=== PATIENT | male | born 1960 | race Caucasian/White ===

== ENCOUNTER → 2024-11-17 | Outpatient (CLI) | payer OTHER ==
[2024-11-17 14:09] LABS: Partial Thromboplastin Time 27.2 sec (22.0-30.0); Prothrombin Time 11.3 sec (10.0-12.5)
[2024-11-17 16:51] LABS: HCT 43.1 % (39.6-50.0); HGB 15.9 g/dL (13.0-17.0); MCH 33.8 pg (27.0-32.0); MCHC 36.9 g/dL (32.0-37.0); MCV 91.7 FL (80.0-97.0); Mean Platelet Volume 11.5 FL (9.5-12.2); NRBC Per 100 WBC 0 X 10*3/uL (0.00-0.01); Platelet Count 267 X 10*3/uL (140-440); RDW 15.5 % (11.5-14.5); WBC 7.01 X 10*3/uL (4.50-10.00)
[2024-11-17 18:12] LABS: ALT 20 U/L (10-49); AST 27 U/L (14-35); Albumin 4.4 g/dL (3.8-4.9); Albumin/Globulin Ratio 1.47 Ratio (1.60-3.17); Alkaline Phosphatase 65 U/L (41-126); Blood Urea Nitrogen 14.1 mg/dL (9.0-27.0); Calcium 10.1 mg/dL (8.7-10.3); Chloride 101 mmol/L (96-109); Glucose 93 mg/dL (70-110); Potassium 4.7 mmol/L (3.5-5.5); Sodium 139 mmol/L (135-145); Total Bilirubin 0.4 mg/dL (0.3-1.2); Total Protein 7.4 g/dL (6.2-8.2)
== END | disposition home or self-care (01) ==
LOC: LABPAT 12:18
PROVIDERS: ATTEND Orthopaedic Surgery
DX: Z01.818 Encounter for other preprocedural examination (principal)
CPT/HCPCS: 36415; 80053; 83036; 85027; 85610; 85730; 86850; 86900; 86901; 87070; 93005

== ENCOUNTER 2024-11-26 10:05 | Day surgery (SDC) | payer OTHER ==
[~2024-11-26 10:05] MED LIST: HYDROmorphone 0.5 MG/0.5 ML SYRINGE IVP PRN; LIDOCAINE 1% (10MG/ML) FOR IV START INTRADERMA PRN; TRANEXAMIC 1,000 MG/100ML-NACL 1,000 MG in SALINE 1 100ML.BAG IV PRN; TRANEXAMIC 1,000 MG/100ML-NACL 1,000 MG in SALINE 1 100ML.BAG IVPB PRN
[2024-11-26] MEDS: IV FLUID CONTINUATION 1,000 ML IV ONE ×3 (11:04→14:26)
[2024-11-26] MEDS: DOCUSATE 100 MG CAP PO PRN (11:14)
[2024-11-26] MEDS: oxyCODONE ER 10 MG TAB.ER.12H PO PRN (11:14)
[2024-11-26] MEDS: ACETAMINOPHEN TAB 500 MG TAB PO PRN (11:14)
[2024-11-26] MEDS: KETOROLAC 15 MG/ML 1 ML VIAL IVP PRN (11:16)
[2024-11-26] MEDS: LACTATED RINGERS 1,000 ML IV SCH (11:16)
[2024-11-26] MEDS: DEXAMETHASONE SOD PHOSPHATE 10 MG/ML 1 ML VIAL IV PRN (11:17)
[2024-11-26] MEDS: FAMOTIDINE 20 MG/2 ML VIAL IVP PRN (11:17)
[2024-11-26] MEDS: ONDANSETRON 4 MG/2 ML VIAL IVP PRN (11:17)
[2024-11-26] MEDS: fentaNYL (PF) 50 MCG/ML 2 ML AMP IVP ONE (11:45)
[2024-11-26] MEDS: MIDAZOLAM 2 MG/2 ML VIAL IV ONE (11:45)
[2024-11-26] MEDS ORDERED: PROPOFOL 10 MG/ML 20 ML VIAL IV ONE (12:29)
[2024-11-26] MEDS ORDERED: ROCURONIUM 10 MG/ML (5 ML VIAL) IV ONE (12:29)
[2024-11-26] MEDS ORDERED: MIDAZOLAM 2 MG/2 ML VIAL ONE (12:29)
[2024-11-26] MEDS ORDERED: TRANEXAMIC 1,000 MG/100ML-NACL PREMIX BAG ONE (12:29)
[2024-11-26] MEDS ORDERED: SUCCINYLCHOLINE CHLORIDE 200 MG/10 ML VIAL IV ONE (12:29)
[2024-11-26] MEDS ORDERED: LIDOCAINE 1% INJ 10MG/ML (20 ML MDV) ONE (12:29)
[2024-11-26] MEDS ORDERED: fentaNYL (PF) 50 MCG/ML 2 ML AMP ONE (12:29)
[2024-11-26] MEDS ORDERED: GLYCOPYRROLATE 0.2 MG/ML 2 ML VIAL ONE (12:29)
[2024-11-26] MEDS ORDERED: HYDROmorphone (PF) 1 MG/ML ONE (12:29)
[2024-11-26] MEDS ORDERED: ROPIVACAINE 5 MG/ML 30 ML VIAL ONE (12:29)
[2024-11-26] MEDS ORDERED: ePHEDrine 50 MG/ML 1 ML VIAL ONE (12:29)
[2024-11-26] MEDS ORDERED: NEOSTIGMINE 1 MG/ML 10 ML VIAL ONE (12:29)
[2024-11-26] MEDS: ceFAZolin 3 GM in SODIUM CHLORIDE 0.9% 100 ML IVPB PRN (12:34)
[2024-11-26] MEDS: ROPIVACAINE/EPI/CLONIDINE/KET 50 ML SYRINGE MISCELLANE PRN (13:12)
--- NOTE | 2024-11-26 13:53 | P.ANPRN ---
Procedure Note - Anesthesia - Nerve Block Performed Right Garcia Single Time Out Performed: Yes (1143) Date of Procedure: 11/26/24 Procedure Start Time: 11:44 Procedure Stop Time: 11:48 Location of Patient: PreOp Indication: Acute Post-Operative Pain, Requested by Surgeon Specifically requested for management of pain by DrPeg: Romero Puckett Sedation Type: Sedate with meaningful contact maintained Preparation: Sterile Prep Position: Supine Catheter: None Needle Types: Pajunk Needle Gauge: 21 Ultrasound used to visualize needle placement: Yes Ultrasound used to observe medication spread: Yes Injectate: 0.5% Ropivacaine (see comment for volume) (30cc) Blood Aspirated: No Pain Paresthesia on Injection Noted: No Resistance on Injection: Normal Image Stored and Saved: Yes Events: Uneventful and Well Tolerated
--- NOTE | 2024-11-26 14:36 | P.OP ---
Date of Procedure: 11/26/24 Preoperative Diagnosis: 1. Severe right hip osteoarthritis 2. Coronary artery disease 3. Prior abdominal aortic aneurysm Postoperative Diagnosis: Same Procedure(s) Performed: Right direct anterior total hip arthroplasty Implants: 1. Jose Trident II Acetabular Cup, Size #52 2. [place] Insignia Size # 5 Femoral Stem, High Offset 3. Biolox delta femoral head, 36 mm, -2.5 mm neck Anesthesia: JULIO CÉSAR, regional Surgeon: Romero Puckett Wastewater Project Engineer #1: Jose Boogie Estimated Blood Loss (ml): 500 IV fluids (ml): 1,000 Pathology: none sent Condition: stable Disposition: PACU Indications for Procedure: I had a long discussion with the patient in the office on the potential risks and complications of an elective total hip replacement through a direct anterior approach. Risks discussed include, but are certainly not limited to, risks from anesthesia, superficial infection requiring local wound care or antibiotics, deep sharifa-prosthetic joint infection and the treatment required to eradicate i nfection, intraoperative fracture, postoperative periprosthetic fracture, damage to local blood vessels or nerves particularly the lateral femoral cutaneous nerve, delayed wound healing requiring local wound care or possibly surgical debridement, hip dislocation, leg length discrepancy, soft tissue irritation around the total hip implant such as iliopsoas tendinitis or trochanteric bursitis, wear and osteolysis from the implants, squeaking or audible noises, groin pain, thigh pain, heterotopic ossification, stiffness, aseptic loosening of the implants, dissatisfaction with surgical outcome, need for revision surgery, DVT, PE, swelling of the operative extremity, acute coronary event, stroke, failure to thrive, and possibly loss of life or limb. The patient understands that while these are the most common complications after an elective hip replacement there are certainly other less common complications possible. They were given ample time to ask questions regarding the potential comp lications of a hip replacement. Following our discussion the patient provided their verbal and written consent to go forward with an elective total hip replacement. Operative Findings: The patient had moderate bleeding throughout the procedure. After surgery I spoke with the patient's who stated that he may not have stopped his Pradaxa 4 days pre-operatively as requested. Description of Procedure: The patient was identified in the preoperative holding area and the correct hip was marked with my initials. I reviewed the procedure and consent with the patient. All of their questions were answered. The patient was then brought back into the operating room by anesthesia. While on the [facility] anesthesia was administered by the anesthesia team. Preoperative antibiotics and tranexamic acid were also given. After the patient was under anesthesia I examined their ankles to determine their preoperative leg length discrepancy. The skin over the anterior aspect of the hip was shaved to remove hair over the site of planned incision. Both feet and ankles were padded with webril and boots for the [place] were applied. The patient was then carefully transferred onto the [place] table. A perineal post was immediately placed. The arms were placed on arm holders and were well-padded. Both boots were secured to the spars on the [place] table. The patient was positioned so that the pelvis was centered over the post. Nonsterile drapes were applied. A timeout was performed identifying the correct patient, operative extremity, and procedure. At this point fluoroscopy was brought in to take preoperative images of the pelvis and operative hip. Using the standing AP pelvis from the office as a template, a comparable image was obtained with fluoroscopy. A metallic bar was used to create a bi-ischial line for use as a reference to leg length adjustments during the procedure. Global offset was also measured on both the operative and nonoperative leg. Fluoroscopy was then brought out and a pre-scrub using a chlorhexidine scrub brush was performed. The operative limb was then prepped and draped in the standard sterile fashion. An anterior longitudinal incision was made lateral and distal to the ASIS. The skin and subcutaneous tissues were incised sharply. The underlying tensor fascia was identified and incised in its midportion. The fascia was dissected free from the underlying muscle and the muscle belly was retracted. A blunt tipped cobra retractor was placed over the superior neck under the muscle fibers of the gluteus minimus. The deep enveloping fascia of the tensor was incised. The anterior leash of vessels were then identified and cauterized. The fascia between the rectus and the capsule was then incised and the pre-capsular fat was excised. A second Cobra was placed inferior to the neck. The interval between the rectus and iliocapsularis and the hip capsule was developed and a retractor was placed carefully over the anterior rim of the acetabulum. A T-shaped anterior capsulotomy was performed. The superior capsular leaflet was left in place in the inferior capsular flap was excised. The Cobra retractors were placed intracapsularly. We then made a femoral neck osteotomy according to preoperative and intraoperative templating and confirmed the level of the osteotomy using fluoroscopic imaging. The femoral head was removed, passed off to the back table, and sized. The superior capsular flap was excised. Retractors were placed circumferentially exposing the acetabulum. We then circumferentially debrided the acetabulum free of labrum and osteophytes. The pulvinar was removed to fully visualize the cotyloid fossa. We then sequentially reamed to achieve peripheral fit and excellent bleeding subchondral bone. The socket was thoroughly irrigated. The acetabular component was impacted into the appropriate position using fluoroscopy to guide version, inclination, and depth of insertion taking care to have a comparable image of the AP pelvis to the standing image taken in the office. An excellent press-fit was achieved and final position was confirmed using fluoroscopy. The press fit was augmented with a bony cancellus dome screw. The liner was then impacted into the socket. Attention was then turned to the femur. The remnant dorsal lateral capsule was excised. The short external rotators were visible and protected. A bone hook was used to confirm appropriate translation of the trochanter away from the acetabulum. The leg was then extended and adducted and the bone hook was used to elevate the femur for broaching. A box osteotome and blunt tipped canal sound was then utilized to gain access to the femoral canal. We then sequentially broached the femur in appropriate anteversion until excellent torsional stability was achieved. The neck cut was brought flush to the trial broach with a calcar planar. A trial neck and head were then placed onto the broach and the hip was atraumatically reduced under direct visualization. External rotation to 90 was performed to assess stability. Fluoroscopy was brought in. An AP and lateral fluoroscopic image of the proximal femur was obtained to assess position and fill of the trial broach. An AP of the pelvis was then obtained and matched to the preoperative image taken. A bi-ischial bar was then placed and measurements were taken to assess changes in length and offset. The hip was then carefully dislocated, the proximal femur was exposed, and the trial implants were removed. The wound and proximal femur was thoroughly irrigated using sterile saline and pulsatile lavage. The final femoral implant was dispensed and gently tapped into place generating an excellent press-fit. The trunnion was cleansed and the final head was tapped into place to engage the Mendoza taper. The acetabulum was irrigated and visualized to be free of debris. The hip was carefully reduced. Stability was checked clinically with external rotation to 90 and there was no evidence of instability. Final fluoroscopic images were taken. The wound was then thoroughly irrigated and soaked with a dilute Betadine rinse for 3 minutes. 3 L of sterile saline was irrigated through the wound using pulsatile lavage. Local anesthetic cocktail was injected into the soft tissues around the surgical field. The wound was then closed in layers. A sterile dressing was placed over the surgical incision. The drapes were taken down and the patient was carefully transferred off of the [place] table. Following removal of the boots the leg lengths felt acceptable. The patient was then taken to recovery room having tolerated the procedure well. Jose Boogie PA-C was required as a skilled construction management assistant due to the complexity of surgery for patient positioning, draping, exposure, retraction, closure of wound and application of dressing. PLAN: The patient can weight-bear as tolerated on the operative extremity. 2 doses of postoperative antibiotics. DVT prophylaxis resume Pradaxa post- operatively. Physical therapy for gait training.
--- NOTE | 2024-11-26 14:36 | FL ---
EXAMINATION TYPE: FL guidance operating room, XR Hip Limited RT DATE OF EXAM: 11/26/2024 2:27 PM COMPARISON: Pre Operative Images if available both CT/MRI or plain film CLINICAL INDICATION: Male, 64 years old with history of RT ANTERIOR HIP; TECHNIQUE: FL guidance operating room, XR Hip Limited RT, multiple fluoroscopic images provided for p rocedure. Total fluoroscopy time: 52.9 seconds Total submitted images to PACS: 7 DAP: [id number] mGym2 Gycm2 uGym2 cGycm2 or equivalent. FINDINGS: Fluoroscopic images during right hip arthroplasty demonstrate hardware in appropriate position. Hardw are appears intact. No immediate complication identified. Stent graft noted in the right pelvis. Left hip at the breast appears intact. IMPRESSION: 1. No evidence for intraoperative complication. 2. Please see the operative/procedural note for further details. [facility], , 11/26/2024 2:34 PM
[2024-11-26] MEDS ORDERED: ACETAMINOPHEN TAB 325 MG TAB PO PRN (14:54)
[2024-11-26] MEDS ORDERED: NALOXONE 0.4 MG/ML 1 ML VIAL IV PRN (14:54)
[2024-11-26] MEDS ORDERED: HYDROmorphone 0.5 MG/0.5 ML SYRINGE IVP PRN ×2 (14:54)
[2024-11-26] MEDS ORDERED: hydrOXYzine pamoate 25 MG CAP PO PRN (14:54)
[2024-11-26] MEDS ORDERED: HYDROcodone/APAP 5-325MG 1 EACH TAB PO PRN (14:54)
[2024-11-26] MEDS ORDERED: HYDROmorphone 1 MG/ML 1 ML SYRINGE IVP PRN (14:54)
[2024-11-26] MEDS ORDERED: traZODone HCL 50 MG TAB PO PRN (16:57)
[2024-11-26] MEDS: SODIUM CHLORIDE 0.9% 1,000 ML IV SCH (17:05)
--- NOTE | 2024-11-26 18:26 | P.CONS ---
History of Present Illness - Reason for Consult Consult date: 11/26/24 Medical Management Requesting physician: Romero Puckett - History of Present Illness History of Presenting Illness: Patient is a very pleasant 64-year-old male with with a past medical history of CAD status post stenting, paroxysmal atrial fibrillation on Pradaxa with previous ablations, PAD with iliac artery stenting x 2, AAA status postrepair in 2012, hypertension, hyperlipidemia, previous DVT, and osteoarthritis. He is currently admitted under orthopedic surgery team status post elective right total hip arthroplasty. Surgical procedure was completed by Dr. Puckett secondary to severe right hip osteoarthritis. We were consulted for medical management throughout hospitalization. Patient seen and fully evaluated in room 462. He currently reports postoperati ve pain is very well-controlled and reports feeling "much better than I did this morning." Patient tolerating regular diet at this time and denies having any postoperative nausea or vomiting. He denies any other complaints including headache, lightheadedness, dizziness, chest pain, palpitations, shortness of breath, cough or congestion, or experiencing any numbness/tingling/weakness in his extremities. Patient does report that he has not yet urinated since completion of surgical procedure, but has also just returned to room and states he will attempt after drinking his water. Review of systems: Pertinent positives and negatives as discussed in HPI, a complete review of systems was performed and all other systems are negative. Physical exam: Vital signs reviewed and stable. General: Nontoxic, no distress and appears stated age. Derm: Skin warm and dry, normal coloration for ethnicity. Head: Atraumatic, normocephalic and symmetric. Eyes: EOM's intact, no lid lag, and anicteric sclera Mouth: no lip lesions, mucus membranes moist Cardiovascular: regular rate and rhythm with normal S1S2, no murmur, positive posterior tibial pulses bilaterally, and cap refill < 2 seconds. Lungs: Respirations even, regular, and unlabored on room air. Lungs CTA bilaterally, no rhonchi, no rales, no wheezing, and no accessory muscle usage. Abdominal: soft, nontender to palpation, no guarding, no appreciable organomegaly Ext: Movement and sensation intact. No gross muscle atrophy, no edema, no contractures Neuro: Speech clear, face symmetrical and CN II-XII grossly intact with no noted focal neuro deficits Psych: Alert and oriented to person, place, time, and situation. Appropriate and pleasant affect. Assessment and Plan of Care: Status post right total hip arthroplasty Management per primary admitting orthopedic surgery team including DVT prophylaxis, pain management, wound/dressing management, weightbearing, and PT/OT. DVT prophylaxis with resumption of patient's Pradaxa 150 mg twice daily starting tomorrow. Paroxysmal atrial fibrillation History of CAD status post stenting History of PAD status post iliac artery stenting AAA status postrepair Hypertension Hyperlipidemia History of DVT Patient to remain on telemetry monitoring during postoperative period. Patient to resume cardiac medication regimen with Pradaxa 150 mg twice daily, hydrochlorothiazide 25 mg daily, and metoprolol 100 mg twice daily. Data reviewed: Reviewed preoperative labs completed 11/17/2024. CBC showing WBC count of 7.01, hemoglobin of 15.9, and platelet count of 267. Coagulation profile was normal findings. BMP unremarkable. Liver profile also unremarkable. Hemoglobin A1c was 5.8%. Vital signs reviewed. Blood pressure 117/78, heart rate 58, respiratory rate 18, temp 97.7 F, and SpO2 of 95% on 2 L. Thank you for allowing us to participate in the care of this pleasant patient. Do not hesitate to contact us with questions. Someone can be reached from [facility] all hours of the day at [phone] or via [employer]. Patient was seen independently by Nurse Practitioner. This document was prepared using [employer] dictation software. Please allow for errors in continuing education instructor while rare they do occur. Larry Montero NP rendered care for this patient independently, reviewed the findings and plan as documented in the note above and agree with plan. I did not physically speak with or examine the patient on this date. Past Medical History Past Medical History: Atrial Fibrillation, Deep Vein Thrombosis (DVT), Hyperlipidemia, Hypertension, Osteoarthritis (OA) Additional Past Medical History / Comment(s): hx AAA 2011, DVTs in lower legs during that hospitalization History of Any Multi-Drug Resistant Organisms: None Reported Past Surgical History: Cardiac Ablation, Heart Catheterization, Joint Replacem ent, Orthopedic Surgery Additional Past Surgical History / Comment(s): left ankle surg, sinus surg, AAA repair 2011, iliac artery stent x2 2012, left hip replacement 2018 in [place], [place], cardiac ablation x2, cardioversion Past Anesthesia/Blood Transfusion Reactions: No Reported Reaction Additional Past Anesthesia/Blood Transfusion Reaction / Comm: no hx blood transfusion Smoking Status: Current some day smoker - Past Family History Father Family Medical History: Cancer, Coronary Artery Disease (CAD) Additional Family Medical History / Comment(s): lung ca, aortic valve replaced Mother Family Medical History: Cancer Additional Family Medical History / Comment(s): lymphoma Brother(s) Family Medical History: Pulmonary Embolus Medications and Allergies Home Medications Medication Instructions Recorded Confirmed Type Acetaminophen [Tylenol Arthritis] 650 mg PO Q6H PRN 11/24/24 11/26/24 History Citalopram Hydrobromide [CeleXA] 20 mg PO DAILY 11/24/24 11/26/24 History Dabigatran [Pradaxa] 150 mg PO BID 11/24/24 11/26/24 History Losartan Potassium 100 mg PO DAILY 11/24/24 11/26/24 History Meloxicam [Mobic] 15 mg PO DAILY PRN 11/24/24 11/26/24 History Metoprolol Succinate (ER) [Toprol 100 mg PO BID 11/24/24 11/26/24 History Xl] hydroCHLOROthiazide 25 mg PO DAILY 11/24/24 11/26/24 History traMADol HCL 50 mg PO Q6H PRN 11/24/24 11/26/24 History traZODone HCL [Desyrel] 50 mg PO HS PRN 11/24/24 11/26/24 History Allergies Allergy/AdvReac Type Severity Reaction Status Date / Time lisinopril AdvReac Chest Pain Verified 11/26/24 10:34 Physical Exam Vitals: Vital Signs Temp Pulse Resp BP Pulse Ox 11/26/24 16:00 58 L 18 117/78 95 11/26/24 15:30 59 L 18 126/78 94 L 11/26/24 15:15 59 L 18 130/72 93 L 11/26/24 15:03 72 16 146/82 97 11/26/24 14:48 97.7 F 80 12 152/86 98 11/26/24 11:52 57 L 16 141/75 97 11/26/24 10:45 97.1 F L 68 14 141/93 97 Intake and Output 11/26/24 11/26/24 11/26/24 06:59 14:59 22:59 Intake Total 1600 Output Total 500 Balance 1100 Intake: IV 1600 Output: Estimated Blood Loss 500 Other: Weight 128.4 kg
[2024-11-26] MEDS: ceFAZolin 3 GM in SODIUM CHLORIDE 0.9% 100 ML IVPB SCH (21:16)
[2024-11-26] MEDS: METOPROLOL SUCCINATE (ER) 100 MG TAB.ER.24H PO SCH (21:17)
[2024-11-26] MEDS: SENNOSIDES-DOCUSATE SODIUM 1 EACH TAB PO SCH (21:17)
[2024-11-26] MEDS: HYDROcodone/APAP 10-325MG 1 EACH TAB PO PRN (21:17)
[2024-11-27] MEDS: hydroCHLOROthiazide 25 MG TAB PO SCH (08:06)
[2024-11-27] MEDS: FAMOTIDINE 20 MG TAB PO SCH (08:06)
[2024-11-27] MEDS: CITALOPRAM HYDROBROMIDE 20 MG TAB PO SCH (08:06)
[2024-11-27] MEDS: LOSARTAN 50 MG TAB PO SCH (08:06)
--- NOTE | 2024-11-27 08:35 | P.DS ---
Providers Attending physician: Romero Puckett Consults: 11/26/24 14:54 Consult Physician Routine Consulting Provider: Siria Lauren Consult Reason/Comments: Status post right total hip arthroplasty postop medical management Do you want consulting provider notified?: Yes Primary care physician: Physician Nonsta Hospital Course: This is a 64-year-old male patient, with past medical history of right severe hip osteoarthritis, who failed nonsurgical conservative management. On 11/26/2024 the patient presented to the [facility] pre-op department for scheduled direct anterior total hip arthroplasty with Dr. Puckett. The patient tolerated the procedure well. The patient was transferred to the orthopedic floor. The patient had no acute events over night. The patient's pain has been well- controlled. The patient states they have been up and walk to the bathroom multiple times. Patient was examined at bedside this morning. Patient is resting comfortably in bed. No apparent distress. They are awake, alert and able to answer questions. On inspection the right surgical hip dressing is intact, there is no drainage or strikethrough. The skin surrounding the dressing is free of erythema. There is mild swelling in the operative thigh. Operative femoral nerve function is intact. The operative calf is soft to compression. The patient is able to actively plantarflex and dorsiflex their operative ankle and toes. Start form completed and placed in the patient's chart. Prescriptions sent to [facility] pharmacy Patient will work with physical therapy and if passes physical therapy may discharge home today. Plan follow up in two weeks in our office. Please see med rec for a list of accurate medications. Assessment: Postop day #1 status post right total hip arthroplasty for severe right hip osteoarthritis Right hip pain Multiple medical problems Plan - Discharge Summary Discharge Rx Participant: Yes New Discharge Prescriptions: New Omeprazole 20 mg PO DAILY #30 tab Sennosides-Docusate Sodium [Senokot-S] 1 tab PO BID PRN #60 tablet PRN Reason: Constipation HYDROcodone/APAP 5-325MG [[place] 5] 1 - 2 each PO Q6HR PRN #48 tab PRN Reason: Pain Ondansetron [Zofran] 4 mg PO Q6HR PRN #30 tab PRN Reason: Nausea No Action Dabigatran [Pradaxa] 150 mg PO BID Metoprolol Succinate (ER) [Toprol Xl] 100 mg PO BID Citalopram Hydrobromide [CeleXA] 20 mg PO DAILY Acetaminophen [Tylenol Arthritis] 650 mg PO Q6H PRN PRN Reason: Pain traMADol HCL 50 mg PO Q6H PRN PRN Reason: Pain Meloxicam [Mobic] 15 mg PO DAILY PRN PRN Reason: Pain hydroCHLOROthiazide 25 mg PO DAILY Losartan Potassium 100 mg PO DAILY traZODone HCL [Desyrel] 50 mg PO HS PRN PRN Reason: sleep Discharge Medication List Acetaminophen [Tylenol Arthritis] 650 mg PO Q6H PRN 11/24/24 [History] Citalopram Hydrobromide [CeleXA] 20 mg PO DAILY 11/24/24 [History] Dabigatran [Pradaxa] 150 mg PO BID 11/24/24 [History] Losartan Potassium 100 mg PO DAILY 11/24/24 [History] Meloxicam [Mobic] 15 mg PO DAILY PRN 11/24/24 [History] Metoprolol Succinate (ER) [Toprol Xl] 100 mg PO BID 11/24/24 [History] hydroCHLOROthiazide 25 mg PO DAILY 11/24/24 [History] traMADol HCL 50 mg PO Q6H PRN 11/24/24 [History] traZODone HCL [Desyrel] 50 mg PO HS PRN 11/24/24 [History] HYDROcodone/APAP 5-325MG [[place] 5] 1 - 2 each PO Q6HR PRN #48 tab 11/27/24 [Rx] Omeprazole 20 mg PO DAILY #30 tab 11/27/24 [Rx] Ondansetron [Zofran] 4 mg PO Q6HR PRN #30 tab 11/27/24 [Rx] Sennosides-Docusate Sodium [Senokot-S] 1 tab PO BID PRN #60 tablet 11/27/24 [Rx] Follow up Appointment(s)/Referral(s): Romero Puckett MD [Medical Doctor] - 2 Weeks Activity/Diet/Wound Care/Special Instructions: 1. Weight-bear as tolerated on your operative extremity unless instructed otherwise. Use a walker or other assistive device to ambulate. 2. Leave surgical dressing in place. If your dressing becomes saturated with blood, there is drainage, or the dressing becomes loose please contact the offic e. 3. It is okay to shower with your surgical dressing, but do not submerge in water (no hot tubs, bath's, swimming etc.) 4. Resume home dabigatran for DVT prophylaxis. 5. While taking [place] or Percocet for pain take a stool softener (Ex: Colace) and drink lots of water. 6. Keep all follow-up appointments as scheduled. You will usually be seen in 1-2 weeks following surgery. 7. Please contact the office with any questions or concerns [phone] Discharge Disposition: HOME WITH HOME HEALTH SERVICES
[2024-11-27 09:17] LABS: Basophils # (A) 0.04 X 10*3/uL (0.00-0.10); Basophils % (A) 0.2 %; Eosinophils # (A) 0 X 10*3/uL (0.04-0.35); Eosinophils % (A) 0 %; HCT 38.1 % (39.6-50.0); HGB 13.1 g/dL (13.0-17.0); Lymphocytes % (A) 7.5 %; MCH 31.6 pg (27.0-32.0); MCHC 34.4 g/dL (32.0-37.0); Mean Platelet Volume 11.3 FL (9.5-12.2); Monocytes # (A) 1.37 X 10*3/uL (0.20-1.00); Monocytes % (A) 7.9 %; NRBC Per 100 WBC 0 X 10*3/uL (0.00-0.01); Neutrophils # (A) 14.45 X 10*3/uL (1.80-7.70); Neutrophils % (A) 83.9 %; Platelet Count 248 X 10*3/uL (140-440); RBC 4.14 X 10*6/uL (4.40-5.60); WBC 17.24 X 10*3/uL (4.50-10.00)
[2024-11-27 09:18] LABS: BUN/Creat Ratio 18.78 Ratio (12.00-20.00); Blood Urea Nitrogen 16.9 mg/dL (9.0-27.0); Calcium 9.2 mg/dL (8.7-10.3); Carbon Dioxide 23.7 mmol/L (21.6-31.8); Chloride 97 mmol/L (96-109); Glucose 137 mg/dL (70-110); Magnesium 1.8 mg/dL (1.5-2.4); Sodium 135 mmol/L (135-145)
[2024-11-27 09:23] VITALS: BP 113/73; PULSE 59; RESP 17; TEMP 98.3
--- NOTE | 2024-11-27 12:24 | P.PN ---
Subjective Progress Note Date: 11/27/24 Hospital course: Patient is a very pleasant 64-year-old male with with a past medical history of CAD status post stenting, paroxysmal atrial fibrillation on Pradaxa with previous ablations, PAD with iliac artery stenting x 2, AAA status postrepair in 2012, hypertension, hyperlipidemia, previous DVT, and osteoarthritis. He is currently admitted under orthopedic surgery team status post elective right total hip arthroplasty. Surgical procedure was completed by Dr. Puckett secondary to severe right hip osteoarthritis. We were consulted for medical management throughout hospitalization. Physical exam: Patient seen and fully evaluated at bedside this morning. He reports doing "great". He reports mild discomfort with ambulation but states he is doing well and feels ready to go home. Patient denies having any other concerns, questions, or needs at this time. Vital signs reviewed and stable. General: Nontoxic, no distress and appears stated age. Derm: Skin warm and dry, normal coloration for ethnicity. Head: Atraumatic, normocephalic and symmetric. Eyes: EOM's intact, no lid lag, and anicteric sclera Mouth: no lip lesions, mucus membranes moist Cardiovascular: regular rate and rhythm with normal S1S2, no murmur, positive posterior tibial pulses bilaterally, and cap refill < 2 seconds. Lungs: Respirations even, regular, and unlabored on room air. Lungs CTA bilaterally, no rhonchi, no rales, no wheezing, and no accessory muscle usage. Abdominal: soft, nontender to palpation, no guarding, no appreciable organomegaly Ext: Movement and sensation intact. No gross muscle atrophy, no edema, no contractures. Operative dressing in place right lateral hip/thigh Neuro: Speech clear, face symmetrical and CN II-XII grossly intact with no noted focal neuro deficits Psych: Alert and oriented to person, place, time, and situation. Appropriate and pleasant affect. Assessment and Plan of Care: Status post right total hip arthroplasty Management per primary admitting orthopedic surgery team including DVT prophylaxis, pain management, wound/dressing management, weightbearing, and PT/OT. DVT prophylaxis with resumption of patient's Pradaxa 150 mg twice daily starting tomorrow. Leukocytosis WBC count 17.24. Believed to be reactive secondary to surgical procedure no signs of infection. No need for further intervention at this time. Paroxysmal atrial fibrillation History of CAD status post stenting History of PAD status post iliac artery stenting AAA status postrepair Hypertension Hyperlipidemia History of DVT Patient to resume cardiac medication regimen with Pradaxa 150 mg twice daily, hydrochlorothiazide 25 mg daily, and metoprolol 100 mg twice daily. Data reviewed: Reviewed postoperative labs. CBC showing leukocytosis with WBC count of 17.24 otherwise no significant abnormalities. BMP unremarkable with the exception of slightly elevated anion gap of 14.30. Blood glucose 137. Magnesium 1.8. Vital signs reviewed. Blood pressure 113/73, heart rate 59, respiratory rate 17, temp 98.3 F, and SpO2 of 96% on room air. Patient is medically optimized for discharge once cleared by primary admitting o rthopedic surgery team. Thank you for allowing us to participate in the care of this pleasant patient. Do not hesitate to contact us with questions. Someone can be reached from the [facility] hospitalist group all hours of the day at [phone] or via [employer]. Patient was seen independently by Nurse Practitioner. This document was prepared using [employer] dictation software. Please allow for errors in rpg programmer analyst while rare they do occur. Larry Montero NP rendered care for this patient independently, reviewed the findings and plan as documented in the note above and agree with plan. I did not physically speak with or examine the patient on this date. Objective - Vital Signs Vital signs: Vital Signs Temp 98.1 F 11/27/24 00:52 Pulse 65 11/27/24 00:52 Resp 20 11/27/24 00:52 BP 104/69 11/27/24 00:52 Pulse Ox 96 11/27/24 00:52 FiO2 Intake & Output 11/26/24 11/27/24 11/27/24 18:59 06:59 18:59 Intake Total 1600 760 Output Total 500 Balance 1100 760 Weight 128.4 kg 128.4 kg Intake: IV 1600 Oral 760 Output: Estimated Blood Loss 500 Other: Voiding Method Toilet # Voids 2 - Labs CBC & Chem 7: 11/27/24 04:08 11/27/24 04:08 Labs: Abnormal Lab Results - Last 24 Hours (Table) 11/27/24 11/27/24 Range/Units 04:08 04:08 WBC 17.24 H (4.50-10.00) X 10*3/uL RBC 4.14 L (4.40-5.60) X 10*6/uL Hct 38.1 L (39.6-50.0) % RDW 15.0 H (11.5-14.5) % Immature Gran # 0.08 H (0.00-0.04) X 10*3/uL Neutrophils # 14.45 H (1.80-7.70) X 10*3/uL Monocytes # 1.37 H (0.20-1.00) X 10*3/uL Eosinophils # 0 L (0.04-0.35) X 10*3/uL Anion Gap 14.30 H (4.00-12.00) mmol/L Glucose 137 H (70-110) mg/dL
[2024-11-27] MEDS ORDERED: DABIGATRAN 150 MG CAP PO SCH (15:00)
== END 2024-11-27 11:56 | disposition home health service (06) ==
LOC: OR 10:05 → 4SSUR 14:41 → OR 11-27 11:56
PROVIDERS: ATTEND Orthopaedic Surgery
DX: M16.11 Unilateral primary osteoarthritis, right hip (principal); E78.5 Hyperlipidemia, unspecified; G89.18 Other acute postprocedural pain; I10 Essential (primary) hypertension; I25.10 Atherosclerotic heart disease of native coronary artery without angina pectoris; I48.0 Paroxysmal atrial fibrillation; I71.40 Abdominal aortic aneurysm, without rupture, unspecified; D72.829 Elevated white blood cell count, unspecified; F17.200 Nicotine dependence, unspecified, uncomplicated; Z79.01 Long term (current) use of anticoagulants; Z79.02 Long term (current) use of antithrombotics/antiplatelets; Z79.899 Other long term (current) drug therapy; Z86.718 Personal history of other venous thrombosis and embolism; Z88.8 Allergy status to other drugs, medicaments and biological substances; Z95.5 Presence of coronary angioplasty implant and graft
CPT/HCPCS: 97161; 64999; 80048; 83735; 85025; 73501; 27130; C1776; J2250; J1100; J0690 ×2; J2405; J3010; J3490; J1885